=== PATIENT | male | born 1955 | race Caucasian/White ===

== ENCOUNTER 2024-05-24 10:19 | Inpatient (IN) | payer MEDICARE, MEDICAID ==
[~2024-05-24] VITALS: Ht 172.7 cm; Wt 60.1 kg
[2024-05-24 11:11] LABS: Basophils # (auto) 0.1 10 ^3/uL (0-0.2); Basophils % (auto) 0.8 % (0.0-2.0); Eosinophils # (auto) 0.2 10 ^3/uL (0-0.8); Eosinophils % (auto) 1.8 % (0.0-7.0); Hematocrit 39.3 % (41.0-53.0); Hemoglobin 13.4 g/dL (13.5-17.5); Lymphocytes # (auto) 1.6 10 ^3/uL (0.4-5.4); Lymphocytes % (auto) 19.1 % (10.0-50.0); Mean Corpuscular Hemoglobin 31.9 pg (28.0-32.0); Mean Corpuscular Volume 93.9 fL (80.0-100.0); Monocytes # (auto) 0.7 10 ^3/uL (0-1.3); Monocytes % (auto) 7.8 % (0.0-12.0); Neutrophils % (auto) 70.5 % (37.0-80.0); Nucleated Red Blood Cells % 0.1 %; Platelet Count (auto) 243 10^3/uL (140-450); Red Blood Cells 4.19 10^6/uL (4.5-5.90); Red Cell Distribution Width 14.7 % (11.8-14.3); White Blood Cell 8.5 10^3/uL (4.4-10.8)
[2024-05-24 11:16] VITALS: PULSE 72; RESP 20; O2SAT 98
[2024-05-24] MEDS: SODIUM CHLORIDE 0.9% 500 ML IVB ONE (11:19)
[2024-05-24 11:26] LABS: Alanine Aminotransferase 10 U/L (7-40); Albumin 4.1 g/dL (3.2-4.8); Alkaline Phosphatase 59 U/L (46-116); Anion Gap 5 (5-15); Aspartate Aminotransferase 11 U/L (13-40); BUN/Creatinine Ratio 23.1 (10.0-20.0); Blood Urea Nitrogen 24 mg/dL (9-23); Carbon Dioxide 22 mmol/L (20-30); Chloride 112 mmol/L (98-107); Glucose 90 mg/dL (74-106); Lipase 31 U/L (12-53); Potassium 4.5 mmol/L (3.5-5.1); Sodium 139 mmol/L (136-145)
[2024-05-24 11:27] LABS: Bilirubin, Total 0.4 mg/dL (0.2-1.0); Total Protein 6.5 g/dL (5.7-8.2)
[2024-05-24] MEDS: ONDANSETRON HCL 4 MG/2 ML VIAL IV PRN (15:37)
[2024-05-24] MEDS: MORPHINE SULFATE INJ 2 MG/ml SYRG IV PRN (15:38)
[2024-05-24] MEDS: SODIUM CHLORIDE 0.9% 1,000 ML IV SCH (15:46)
[2024-05-24 17:58] VITALS: PULSE 79; RESP 20; O2SAT 98
[2024-05-24] MEDS: cefTRIAXone 1GM/50ML D5W 50 ML IV SCH (18:38)
[2024-05-24] MEDS: metroNIDAZOLE 500MG/100ML 100 ML IV SCH (18:38)
[2024-05-24 20:00] VITALS: RESP 16
[2024-05-25] VITALS (7 sets, daily range): BP systolic 93–133; BP diastolic 55–75; PULSE 52–66; RESP 18–20; TEMP 97.4–97.9; O2SAT 52–100
[2024-05-25] MEDS: MELATONIN 5 MG TAB PO SCH (00:44)
[2024-05-25] MEDS ORDERED: MELATONIN 5 MG TAB PO PRN (03:45)
[2024-05-25 11:15] LABS: Basophils # (auto) 0.1 10 ^3/uL (0-0.2); Basophils % (auto) 1.2 % (0.0-2.0); Eosinophils # (auto) 0.1 10 ^3/uL (0-0.8); Eosinophils % (auto) 2.3 % (0.0-7.0); Hematocrit 38.1 % (41.0-53.0); Hemoglobin 12.9 g/dL (13.5-17.5); Lymphocytes # (auto) 1.6 10 ^3/uL (0.4-5.4); Lymphocytes % (auto) 34.1 % (10.0-50.0); Mean Corpuscular Volume 94.1 fL (80.0-100.0); Monocytes # (auto) 0.4 10 ^3/uL (0-1.3); Monocytes % (auto) 8.2 % (0.0-12.0); Neutrophils # (auto) 2.6 10 ^3/uL (1.6-8.6); Neutrophils % (auto) 54.2 % (37.0-80.0); Platelet Count (auto) 207 10^3/uL (140-450); Red Blood Cells 4.05 10^6/uL (4.5-5.90); Red Cell Distribution Width 14.5 % (11.8-14.3); White Blood Cell 4.7 10^3/uL (4.4-10.8)
[2024-05-25 11:16] LABS: Anion Gap 1 (5-15); Carbon Dioxide 27 mmol/L (20-30); Chloride 111 mmol/L (98-107); Potassium 4.9 mmol/L (3.5-5.1); Sodium 139 mmol/L (136-145)
[2024-05-25 11:18] LABS: Calcium 9.1 mg/dL (8.7-10.4)
[2024-05-25 11:22] LABS: BUN/Creatinine Ratio 13.3 (10.0-20.0); Blood Urea Nitrogen 12 mg/dL (9-23); Glucose 69 mg/dL (74-106)
[2024-05-25 12:49] LABS: INR 1.08 (0.9-1.15); Partial Thromboplastin Time 32.5 SEC (24.5-34.5); Prothrombin Time 11.4 sec (9.3-11.8)
[2024-05-25] MEDS ORDERED: KETOROLAC TROMETH 30 MG/ML 1ML VIAL IV ONE (13:30)
[2024-05-25] MEDS ORDERED: KETOROLAC TROMETH 30 MG/ML 1ML VIAL IV PRN (13:30)
[2024-05-26] VITALS (7 sets, daily range): BP systolic 106–154; BP diastolic 55–96; PULSE 61–72; RESP 17–20; TEMP 97.7–98.3; O2SAT 91–99
[2024-05-26 07:02] LABS: Anion Gap 1 (5-15); Carbon Dioxide 29 mmol/L (20-30); Chloride 109 mmol/L (98-107); Potassium 5.2 mmol/L (3.5-5.1); Sodium 139 mmol/L (136-145)
[2024-05-26 07:04] LABS: Calcium 9.5 mg/dL (8.7-10.4)
[2024-05-26 07:05] LABS: Basophils # (auto) 0.1 10 ^3/uL (0-0.2); Basophils % (auto) 0.8 % (0.0-2.0); Eosinophils # (auto) 0.2 10 ^3/uL (0-0.8); Hematocrit 38.7 % (41.0-53.0); Hemoglobin 13.3 g/dL (13.5-17.5); Lymphocytes # (auto) 1.6 10 ^3/uL (0.4-5.4); Lymphocytes % (auto) 20.8 % (10.0-50.0); Mean Corpuscular Hemoglobin 32.1 pg (28.0-32.0); Mean Corpuscular Hgb Conc. 34.4 g/dL (32.0-36.0); Mean Corpuscular Volume 93.2 fL (80.0-100.0); Monocytes # (auto) 0.5 10 ^3/uL (0-1.3); Monocytes % (auto) 6.5 % (0.0-12.0); Neutrophils # (auto) 5.5 10 ^3/uL (1.6-8.6); Neutrophils % (auto) 69.9 % (37.0-80.0); Platelet Count (auto) 242 10^3/uL (140-450); Red Blood Cells 4.15 10^6/uL (4.5-5.90); Red Cell Distribution Width 14.4 % (11.8-14.3); White Blood Cell 7.9 10^3/uL (4.4-10.8)
[2024-05-26 07:08] LABS: BUN/Creatinine Ratio 9.2 (10.0-20.0); Blood Urea Nitrogen 8 mg/dL (9-23); Glucose 83 mg/dL (74-106)
[2024-05-26] MEDS: NICOTINE 21MG/24 HR TOPICAL PATCH TD ONE (09:44)
[2024-05-26] MEDS: GABAPENTIN 100 MG CAP PO ONE (09:45)
[2024-05-27] MEDS ORDERED: NICOTINE 21MG/24 HR TOPICAL PATCH TD SCH (10:00)
[2024-05-27] MEDS ORDERED: GABAPENTIN 100 MG CAP PO SCH (10:00)
== END 2024-05-26 16:58 | disposition home or self-care (01) | DRG 445 ==
LOC: ER 10:19 → OVERFLOW 15:11 → WEST WING 17:26
PROVIDERS: ADMIT Internal Medicine Pulmonary Disease; ATTEND Internal Medicine Pulmonary Disease
DX: K80.40 Calculus of bile duct with cholecystitis, unspecified, without obstruction (principal); Z68.1 Body mass index [BMI] 19.9 or less, adult; F17.210 Nicotine dependence, cigarettes, uncomplicated; G89.29 Other chronic pain; N21.0 Calculus in bladder; N28.1 Cyst of kidney, acquired; Z63.72 Alcoholism and drug addiction in family; Z80.1 Family history of malignant neoplasm of trachea, bronchus and lung; Z81.1 Family history of alcohol abuse and dependence; Z87.442 Personal history of urinary calculi; Z88.8 Allergy status to other drugs, medicaments and biological substances
CPT/HCPCS: 36415; 71045; 74176; 76705; 80048; 80053; 83690; 85025; 85610; 85730; 96365; 96375; G0378; J2405; J3490

== ENCOUNTER 2024-06-23 18:25 | Emergency (ER) | payer MEDICARE, MEDICAID ==
[~2024-06-23] VITALS: Ht 175.3 cm; Wt 61.9 kg
[2024-06-23 19:25] VITALS: BP 97/58; PULSE 80; RESP 16; O2SAT 97
== END 2024-06-23 22:01 | disposition left against medical advice (07) ==
LOC: ER 18:25
DX: M54.6 Pain in thoracic spine (principal); M54.2 Cervicalgia; Z53.21 Procedure and treatment not carried out due to patient leaving prior to being seen by health care provider; X50.0XXA Overexertion from strenuous movement or load, initial encounter; Y93.89 Activity, other specified; Y92.89 Other specified places as the place of occurrence of the external cause; Y99.8 Other external cause status
CPT/HCPCS: 72070

== ENCOUNTER 2024-10-08 12:47 | Emergency (ER) | payer OTHER, MEDICAID ==
[~2024-10-08] VITALS: Ht 177.8 cm; Wt 64.3 kg
--- NOTE | 2024-10-08 13:29 | DVH ---
CHEST RADIOGRAPH Indication: COUGH Technique: Frontal and lateral view of the chest was obtained Comparison: None FINDINGS: Lines and Tubes: None Lungs: Clear Pleura: No effusion. No pneumothorax. Cardiomediastinal contours: Unremarkable Bones: Unremarkable IMPRESSION: No evidence of acute disease.
--- NOTE | 2024-10-08 14:54 | ED.PDOC ---
History of Present Illness HPI Comments This is a 69 year old male with chest soreness and productive cough, runny nose. Body aches. States not getting better. Chief Complaint: Flu like Time Seen by MD: 16:18 Primary Care Provider: WHIT Barboza Notes: Nurses Notes, Medications, Allergies Allergies: Coded Allergies: Iodide (Verified Allergy, Severe, 05/24/24) Quetiapine (Verified Allergy, Severe, 05/24/24) Home Meds No Active Prescriptions or Reported Meds Information Source: Patient Mode of Arrival: Ambulatory Past Medical History Past Medical History (Other): Prostate Tardive Disk Surgical History: Tonsillectomy Family History Family History (Other): Family history of alcoholism Social History Smoker: Cigarettes Alcohol: Sober Drugs: Denies Drug Use Lives In: Home Constitutional: reports: chills, fever EENTM: reports: nasal discharge, nose congestion Respiratory: reports: cough Gastrointestinal: reports: nausea Musculoskeletal: reports: muscle pain All Other Systems: Reviewed and Negative Physical Exam General Appearance: No Apparent Distress, Normal HEENT: Normal ENT Inspection, Pharynx Normal, TMs Normal Neck: Non-Tender, Normal Inspection Respiratory: Chest Non-Tender, Lungs Clear, Normal Breath Sounds Cardiovascular: Regular Rate/Rhythm Breast Exam: Deferred Gastrointestinal: Non Tender, Soft Genitalia: Deferred Pelvic: Deferred Rectal: Deferred Extremities: Normal inspection, Normal range of motion, Non-tender Neurologic: Alert, Normal Affect, Normal Mood Cerebellar Function: NOT DONE Reflexes: NOT DONE Skin: Dry, Warm Lymphatic: No Adenopathy Was a procedure done? Was a procedure done?: No Differential Dx Considerations may include: pneumonia, Flu, Covid X-Ray, Labs, Meds, VS Vital Signs Date Time Temp Pulse Resp B/P (MAP) Pulse Ox O2 Delivery O2 Flow Rate FiO2 10/08/24 16:11 100 20 97 Room Air 10/08/24 16:11 98.2 100 20 134/77 (96) 97 98.2 10/08/24 13:45 20 97 Room Air* 0 21 10/08/24 13:11 97.5 90 20 142/88 (106) 96 Lab Test 10/08/24 14:29 Range/Units Influenza Type A Antigen Negative Negative Influenza Type B Antigen Negative Negative SARS-CoV-2 Antigen (Rapid) Negative NEGATIVE X-Ray, Labs, Meds, VS Comment Patient seen and examined by me. Covid and flu negative. Will start on Oral antibiotics for URI. Instructed to drink alot of fluids. Chest xray looks good. CHEST RADIOGRAPH Indication: COUGH Technique: Frontal and lateral view of the chest was obtained Comparison: None FINDINGS: Lines and Tubes: None Lungs: Clear Pleura: No effusion. No pneumothorax. Cardiomediastinal contours: Unremarkable Bones: Unremarkable IMPRESSION: No evidence of acute disease. Time of 1ST Reevaluation: 16:20 Reevaluation 1ST: Improved Patient Education/Counseling: Diagnosis, Treatment, Prognosis, Need For Follow Up Family Education/Counseling: No Family Present Departure 1 Departure Time of Disposition: 16:22 Impression: Primary Impression: Upper respiratory infection Disposition: HOME / SELF CARE / HOMELESS Condition: Good Additional Instructions: Covid and flu test was normal Rest, drink a lot of liquids Finish antibiotics as directed e-Prescriptions Amoxicillin Trihydrate (Amoxicillin) 500 Mg Cap 500 MG PO TID for 7 Days, #21 CAP Prov: PINA MCCOLLUM 10/08/24 Discharged With: Self Critical Care Note Critical Care Time?: No Stability Stability form required: PINA Banks Oct 08, 2024 14:54
[2024-10-08 15:06] LABS: Rapid Influenza A Negative (Negative); Rapid Influenza B Negative (Negative)
[2024-10-08 15:07] LABS: COVID19 ANTIGEN SOFIA FIA NEGATIVE (NEGATIVE)
[2024-10-08 16:11] VITALS: BP 134/77; PULSE 100; RESP 20; TEMP 98.2; O2SAT 97
[2024-10-08] MEDS ORDERED: AMOX500C2 PO (16:23)
== END 2024-10-08 16:28 | disposition home or self-care (01) ==
LOC: ER 12:47
DX: J06.9 Acute upper respiratory infection, unspecified (principal); F17.210 Nicotine dependence, cigarettes, uncomplicated; Z88.8 Allergy status to other drugs, medicaments and biological substances; Z20.822 Contact with and (suspected) exposure to COVID-19
CPT/HCPCS: 36415; 71046; 87426; 87804